=== PATIENT | female | born 1990 | race Caucasian/White ===

== ENCOUNTER 2017-02-06 01:11 | Emergency (ER) | payer OTHER ==
[2017-02-06 03:08] VITALS: BP 116/76
== END 2017-02-06 03:08 | disposition home or self-care (01) ==
LOC: ED 01:11
DX: M54.5 Low back pain (principal)
CPT/HCPCS: J2270; Q0162

== ENCOUNTER 2018-04-29 22:55 | Emergency (ER) | payer OTHER ==
[2018-04-29 23:53] VITALS: BP 132/93
== END 2018-04-29 23:53 | disposition home or self-care (01) ==
LOC: ED 22:55
DX: J02.9 Acute pharyngitis, unspecified (principal); H92.09 Otalgia, unspecified ear; Z88.0 Allergy status to penicillin

== ENCOUNTER 2019-03-07 23:57 | Emergency (ER) | payer OTHER ==
[~2019-03-07] VITALS: Ht 165.1 cm; Wt 109.8 kg
[2019-03-08 00:03] VITALS: Ht 165.1 cm; Wt 109.8 kg
[2019-03-08 00:41] VITALS: BP 147/81
== END 2019-03-08 00:41 | disposition home or self-care (01) ==
LOC: ED 23:57
DX: J03.90 Acute tonsillitis, unspecified (principal); R09.89 Other specified symptoms and signs involving the circulatory and respiratory systems; Z88.0 Allergy status to penicillin
CPT/HCPCS: J7512